=== PATIENT | female | born 1975 | race Caucasian/White ===

== ENCOUNTER 2016-05-26 15:08 | Emergency (ER) | payer SELFPAY ==
[~2016-05-26] VITALS: Ht 162.6 cm; Wt 78.9 kg
[2016-05-26 15:42] VITALS: BP 134/86
[2016-05-26] MEDS ORDERED: NORCO 5/3251 TABLET PO (18:03)
== END 2016-05-26 18:34 | disposition home or self-care (01) ==
LOC: EME 15:08
PROC: 2W3DX1Z Immobilization of Left Lower Arm using Splint (ICD-10-PCS; principal; 2016-05-26)
DX: S63.502A Unspecified sprain of left wrist, initial encounter (principal); W01.0XXA Fall on same level from slipping, tripping and stumbling without subsequent striking against object, initial encounter; Z87.81 Personal history of (healed) traumatic fracture; Z87.891 Personal history of nicotine dependence
CPT/HCPCS: 73110; 73130; 99281; 99284